=== PATIENT | male | born 1965 | race African-American/Black ===

== ENCOUNTER 2022-02-11 03:38 | Emergency (ER) | payer OTHER ==
[~2022-02-11] VITALS: Ht 190.5 cm; Wt 95.0 kg
[2022-02-11] MEDS ORDERED: SODIUM CHLORIDE 0.9% 1,000 ML IV ONE (06:45)
[2022-02-11 08:27] LABS: CLARITY URINE CLEAR (CLEAR); COLOR URINE YELLOW (YELLOW); KETONES URINE NEGATIVE (NEGATIVE); LEUKOCYTE ESTERASE URINE NEGATIVE (NEGATIVE); NITRITE URINE NEGATIVE (NEGATIVE); OCCULT BLOOD URINE NEGATIVE (NEGATIVE); PH URINE 5.5 (4.5-8.0); PROTEIN URINE NEGATIVE (NEGATIVE); UROBILINOGEN URINE 0.2 E.U./dL (0.2-1.0)
[2022-02-11 08:32] LABS: BASOPHILS % 0.2 % (0.0-2.0); EOSINOPHILS % 0.4 % (0.0-5.0); HEMATOCRIT. 45.9 % (42.0-52.0); LYMPHOCYTES % 8.9 % (20.0-50.0); MONOCYTES % 5.3 % (2.0-8.0); NEUTROPHILS % 85.2 % (40.0-76.0); PLATELET 186 x1000/uL (130-400); RED BLOOD CELL COUNT 5.34 mill/uL (4.7-6.1); RED CELL DISTRIBUTION WIDTH 14.3 % (11.6-14.6)
[2022-02-11 12:51] LABS: CHLORIDE 111 mEq/L (98-107)
[2022-02-11 15:21] VITALS: BP 112/66
== END 2022-02-11 15:22 | disposition home or self-care (01) ==
LOC: ER 03:47
DX: R55 Syncope and collapse (principal); I10 Essential (primary) hypertension
CPT/HCPCS: 36415; 71045; 80053; 81003; 83880; 84484; 85025; 93005; 96360; 96361; 99285; J7030; Z7610